=== PATIENT | female | born 1980 | race American Indian/Alaskan Native ===

== ENCOUNTER 2021-10-24 22:28 | Emergency (ER) | payer BC ==
[2021-10-24 22:36] VITALS: BP 107/71
[2021-10-25] MEDS ORDERED: KETOROLAC 30 MG/1 ML INJ IM ONE (00:56)
--- NOTE | 2021-10-25 01:03 | Emergency Department Report ---
HPI - General Chief Complaint: Extremity Injury, Lower Time Seen by Provider: 10/25/21 00:56 - HPI HPI: 41-year-old -[place] female presents to the emergency department with a complaint of a 1 week history of left knee pain that occurs when the patient is bearing weight, ambulating or walking upstairs. She says that she feels some type of a twitch in the knee. The patient says that she has a history of bilateral knee arthritis and "last time the right knee was bothering me in this time of the left." She denies any trauma, injury, or known inciting event. She also has a history of hypertension. She has not taken anything for symptoms p rior to presentation. She denies any skin color change, lower extremity swelling, numbness. ED Past Medical Hx - Past Medical History Hx Arthritis: Yes (KNEES) Hx Psychiatric Treatment: Yes (PANIC ATTACKS) Additional medical history: HERPES - Surgical History Additional Surgical History: nose surgery/NASAL FX - Social History Smoking Status: Current Every Day Smoker Substance Use Type: Alcohol - Medications Home Medications: Home Medications Medication Instructions Recorded Confirmed Last Taken Type Acyclovir [Zovirax Cap] 400 mg PO Q8H #60 cap 02/25/15 Unknown Rx Ibuprofen [Motrin 800 MG tab] 800 mg PO Q8HR PRN #20 tablet 10/25/21 Unknown Rx ED Review of Systems ROS: Stated complaint: LEFT LEG PAIN Other details as noted in HPI Comment: All other systems reviewed and negative Constitutional: denies: chills, fever Musculoskeletal: arthralgia. denies: joint swelling Skin: denies: rash, change in color Neurological: denies: weakness, numbness Physical Exam - Physical Exam Vital Signs: Vital Signs 10/24/21 22:29 Temperature 98 F Pulse Rate 89 Respiratory 17 Rate Blood Pressure 107/71 [Right] O2 Sat by Pulse 99 Oximetry Physical Exam: GENERAL: The patient is well-developed well-nourished. HENT: Normocephalic. Atraumatic. Patient has moist mucous membranes. EYES: Extraocular motions are intact. Pupils equal reactive to light bilaterally. NECK: Supple. Trachea is midline. SKIN: Skin is warm and dry. NEURO: The patient is awake, alert, and oriented. The patient is cooperative. Normal speech. MUSCULOSKELETAL: Unable to reproduce left knee pain to palpation. Negative anterior posterior drawer test. No laxity with valgus or varus stress. Dorsalis pedis pulse +2/4 and capillary refill less than 2 seconds to the affected left lower extremity. There is no limitation range of motion. ED Course Vital Signs 10/24/21 22:29 Temperature 98 F Pulse Rate 89 Respiratory 17 Rate Blood Pressure 107/71 [Right] O2 Sat by Pulse 99 Oximetry ED Medical Decision Making - Radiology Data Radiology results: image reviewed interpreted by me: X-ray of the left knee does not show any fracture, dislocation, or any acute process. - Medical Decision Making This patient presents with atraumatic left knee pain. She denies any swelling, skin color change, rash, lesions. On examination there is no significant reproducible tenderness to palpation. Negative drawer test. No laxity with valgus or varus stress. The patient's pain occurs when she is ambulating or walking upstairs and she feels some type of twinge. X-ray does not show any fracture, dislocation, or any acute process. She was given a shot of Toradol and upon reevaluation says she is feeling improved. Patient will be discharged home with a prescription for ibuprofen and an outpatient referral for orthopedics. Critical Care Time: No Critical care attestation.: If time is entered above; I have spent that time in minutes in the direct care of this critically ill patient, excluding procedure time. ED Disposition Clinical Impression: Left knee pain Qualifiers: Chronicity: unspecified Qualified Code(s): M25.562 - Pain in left knee Disposition: 01 HOME / SELF CARE / HOMELESS Is pt being admited?: No Condition: Stable Instructions: Acute Knee Pain, Adult Additional Instructions: Please follow-up with a primary care physician in the next few days. I am giving you a referral for a local orthopedist, Dr. Calvo, to follow-up regarding your left knee pain. Return to the emergency department with any worsening of your symptoms, new or concerning symptoms not addressed during this current emergency department visit, or with any acute distress. Prescriptions: Ibuprofen [Motrin 800 MG tab] 800 mg PO Q8HR PRN #20 tablet PRN Reason: Pain , Severe (7-10) Referrals: DANAY MISHRA MD [Primary Care Provider] - 2-3 Days JACIEL CALVO MD [Staff Physician] - 2-3 Days Time of Disposition: 02:45
--- NOTE | 2021-10-25 01:28 | XRay Report ---
XR knee 3V LT INDICATION / CLINICAL INFORMATION: left knee pain COMPARISON: None available. FINDINGS: BONES / JOINT(S): No acute fracture or subluxation. Mild tricompartmental osteoarthritis. No signific ant joint effusion. SOFT TISSUES: No significant abnormality. ADDITIONAL FINDINGS: None. IMPRESSION: No acute osseous findings in the left knee. Signer Name: Manny Donato MD Signed: 10/25/2021 1:23 AM Workstation Name: [id number]
== END 2021-10-25 02:49 | disposition home or self-care (01) ==
LOC: ED 22:28
DX: M25.562 Pain in left knee (principal); F17.200 Nicotine dependence, unspecified, uncomplicated; F10.20 Alcohol dependence, uncomplicated
CPT/HCPCS: 73562; 96372; 99283; J1885